=== PATIENT | male | born 1965 | race Hispanic/Latino ===

== ENCOUNTER 2016-11-12 14:15 | Observation (INO) | payer OTHER, MEDICARE ==
[2016-11-12 14:25] VITALS: BMI 34.0
[2016-11-12] MEDS ORDERED: Lidocaine 5% Patch TD ONE (15:33)
--- NOTE | 2016-11-12 15:41 | C.PDOC ---
History Of Present Illness 51-year-old male, PMHx includes Hypertension, presents to the emergency department with complaints of persistent lower-back and abdominal pain x1 week. Pt seen at [facility] for same complaint this past week. Patient states he only had a LS XR and CXR done. Initial onset right right-lower back, that is now radiating to B/L lower quadrants intermittently, and described as a cramping sensation. left back pain worsens w/ exertion and certain positions. Patient states he initially thought he was constipated, and notes no improvement with OTC constipation meds. PERSIST LB, ABD PAIN X 1 WEEK. SEEN @ [facility] FOR SAME 11/09, PS ONLY CXR AND LS XRAY DONE. dc w flexeril and naproxn BUT DIDNT FILL BC "TOO PAINFUL TO MOVE" INITIAL ONSET R LB, NOW RADIATION INTERMIT B/L LQ CRAMPING BUT PERSIST B/L LBP. LBP WORSE W EXTENSION, CERTAIN POSITIONS. PS INITIALLY THOUGHT WAS CONSTIPATION NO CHANGE W OTC CONSTIPATION RX. +BM. PSH [facility] HERNIA REPAIR. NO FEVER, NV, HEMATURIA. PRIOR HO SCIATICA R LEG BUT CURRENT BACK PAIN DIFF THAN PRIOR. HO LUE RSD. PS WAS ON CHRONIC PAIN MEDS BUT NO LONGER USES FOR "MANY YEARS". EXAM MILD DIST NONTOXIC BACK NONTEND, LIMITED EXTENSION DUE TO PAIN ABD L>R LQ TEND MILD SOFT NO R/G NEURO INTACT REMAINDER NEG Time Seen by Provider: 11/12/16 14:43 Chief Complaint (Nursing): Abdominal Pain History Per: Patient History/Exam Limitations: no limitations Past Medical History Reviewed: Historical Data, Nursing Documentation, Vital Signs Vital Signs: Last Vital Signs Temp 97.7 F 11/12/16 17:32 Pulse 60 11/12/16 17:32 Resp 16 11/12/16 17:32 BP 127/66 11/12/16 17:32 Pulse Ox 96 11/12/16 17:32 - Medical History PMH: HTN Family History: States: Unknown Family Hx - Social History Hx Alcohol Use: No Hx Substance Use: Yes - Immunization History Hx Tetanus Toxoid Vaccination: Yes Hx Influenza Vaccination: Yes Hx Pneumococcal Vaccination: No Review Of Systems Except As Marked, All Systems Reviewed And Found Negative. Constitutional: Negative for: Fever Cardiovascular: Negative for: Chest Pain Respiratory: Negative for: Cough Gastrointestinal: Positive for: Abdominal Pain Musculoskeletal: Positive for: Back Pain. Negative for: Neck Pain Skin: Negative for: Rash Physical Exam - Physical Exam Appears: Non-toxic, No Acute Distress Skin: Warm, Dry, No Rash Eye(s): bilateral: Normal Inspection, PERRL Nose: Normal Oral Mucosa: Moist Neck: Normal ROM Cardiovascular: Rhythm Regular Respiratory: Normal Breath Sounds, No Accessory Muscle Use Gastrointestinal/Abdominal: Tenderness, No Guarding, No Rebound, Other (L>R LQ TEND MILD SOFT) Back: Other (NONTEND, LIMITED EXTENSION DUE TO PAIN) Extremity: Normal ROM Neurological/Psych: Oriented x3, Normal Speech ED Course And Treatment - Laboratory Results Result Diagrams: 11/12/16 16:09 11/12/16 16:09 O2 Sat by Pulse Oximetry: 100 ED OBSERVATION Discharge: Yes Date of observation admission: 11/12/16 Time of observation admission: 15:00 - Observation admission statement Patient is being placed in observation because:: ABD PAIN, LBP - Goals of Observation Goals of observation are:: NEG ACS, NEG OCCULT FINDINGS, SX IMPROVE - Progress Note Progress Note: 11/12/16 17:[address], LABS, XRAY NEG. ADVISED FU PMD 11/12/16 17:55 PT OFFERED NONNARCOTIC OPTION DUE TO PRIOR NARCOTIC DEPENDENCE. STATES REQUESTING "JUST A COUPLE DAYS SUPPLY" UNTIL SEES PMD Disposition Counseled Patient/Family Regarding: Studies Performed, Diagnosis, Need For Followup, Rx Given - Disposition Disposition: HOME/ ROUTINE Disposition Time: 17:55 Condition: IMPROVED - Clinical Impression Clinical Impression: Abdominal pain, Back pain - Scribe Statement The provider has reviewed the documentation as recorded by the Rodriguez Lala All medical record entries made by the Rodriguez were at my direction and personally dictated by me. I have reviewed the chart and agree that the record accurately reflects my personal performance of the history, physical exam, medical decision making, and the department course for this patient. I have also personally directed, reviewed, and agree with the discharge instructions and disposition.
[2016-11-12] MEDS ORDERED: Iohexol 240 (50 ml) PO STA (15:42)
[2016-11-12] MEDS ORDERED: Sodium Chloride 0.9% 1,000 ML IV ONE (15:42)
[2016-11-12] MEDS ORDERED: Lidocaine 5% Patch TD STA (15:43)
[2016-11-12] MEDS ORDERED: Iohexol 240 (50 ml) ONE (15:50)
[2016-11-12] MEDS ORDERED: Sodium Chloride 0.9% 1,000 ML ONE (15:51)
[2016-11-12 16:08] LABS: VENOUS BLOOD GAS BASE EXCESS -0.2 mmol/L (0.0-2.0); VENOUS BLOOD GAS PCO2 41 mmHg (40-60); VENOUS BLOOD PH 7.39 (7.32-7.43)
[2016-11-12 16:13] LABS: BASO % 0.2 % (0.0-2.0); EOS # 0.1 K/uL (0.0-0.7); HEMATOCRIT 45.5 % (35.0-51.0); LYMPH # 2.1 K/uL (1.0-4.3); LYMPH % 28.3 % (20.0-40.0); MEAN CELL VOLUME 90.5 fL (80.0-94.0); MEAN CORPUSCULAR HEMOGLOBIN 30.6 pg (27.0-31.0); MEAN CORPUSCULAR HGB CONC 33.9 g/dL (33.0-37.0); MEAN PLATELET VOLUME 8.8 fL (7.2-11.7); MONO # 0.4 K/uL (0.0-0.8); MONO % 5.9 % (0.0-10.0); RED CELL DISTRIBUTION WIDTH 13.9 % (11.5-14.5); WHITE BLOOD COUNT 7.6 K/uL (4.8-10.8)
[2016-11-12 16:21] LABS: CHLORIDE 103 mmol/L (98-107); POTASSIUM 4.5 mmol/L (3.6-5.2); SODIUM 139 mmol/L (132-148)
[2016-11-12 16:23] LABS: ALKALINE PHOSPHATASE 74 U/L (38-126); ALT/SGPT 117 U/L (21-72); AST/SGOT 64 U/L (17-59); BILIRUBIN,TOTAL 0.7 mg/dL (0.2-1.3); BLOOD UREA NITROGEN 18 mg/dL (9-20); CARBON DIOXIDE 25 mmol/L (22-30); GFR AFRICAN-AMERICAN > 60; GLUCOSE,RANDOM 127 mg/dL (75-110); TOTAL PROTEIN 8.4 g/dL (6.3-8.3)
[2016-11-12 16:24] LABS: CALCIUM 8.9 mg/dl (8.6-10.4)
--- NOTE | 2016-11-12 16:41 | RAD ---
PROCEDURE: Radiographs of the Lumbar Spine. HISTORY: TRAUMA COMPARISON: No prior. FINDINGS: BONES: Mildly exaggerated lumbar lordosis. No compressive deformity. DISC SPACES: Decrease in intervertebral joint space at L5-S1 and T12-L1. OTHER FINDINGS: Vascular calcifications. Facet arthropathy. IMPRESSION: No compressive deformity. If symptoms of pain persist, MRI of the lumbar spine can be obtained. Please note that the lower thoracic spine was suboptimally evaluated.
[2016-11-12] MEDS ORDERED: Iodixanol 320 MG/ML 100 ML BOTTLE IV ONE (16:46)
[2016-11-12 16:48] LABS: RBC URINE 3 /hpf (0-3); URINE BACTERIA OCC (<OCC); URINE BILIRUBIN NEGATIVE (NEGATIVE); URINE BLOOD NEGATIVE (NEGATIVE); URINE COLOR Amber (YELLOW); URINE GLUCOSE (UA) NORMAL (Normal); URINE KETONE NEGATIVE (NEGATIVE); URINE LEUKOCYTE ESTERASE NEG Leu/uL (Negative); URINE PROTEIN NEGATIVE (NEGATIVE); URINE UROBILINOGEN NORMAL mg/dL (0.2-1.0); WBC URINE 1 /hpf (0-5)
[2016-11-12 17:33] VITALS: BP 127/66; PULSE 60; RESP 16; TEMP 97.7
--- NOTE | 2016-11-12 17:43 | CT ---
PROCEDURE: CT Abdomen and Pelvis with contrast HISTORY: Lower abdominal and back pain. COMPARISON: None. TECHNIQUE: Contrast dose: 100 cc Visipaque 320. Radiation dose: Total exam DLP = 1321.25 mGy-cm. This CT exam was performed using one or more of the following dose reduction techniques: Automated exposure control, adjustment of the mA and/or kV according to patient size, and/or use of iterative reconstruction technique. FINDINGS: LOWER THORAX: Unremarkable. LIVER: Hepatic steatosis. No focal masses. No intrahepatic bile duct dilatation or perihepatic ascites. GALLBLADDER AND BILE DUCTS: Unremarkable. PANCREAS: Unremarkable. No gross lesion or ductal dilatation. SPLEEN: Unremarkable. ADRENALS: Unremarkable. No mass. KIDNEYS AND URETERS: Unremarkable. No hydronephrosis. No solid mass. VASCULATURE: Unremarkable. No aortic aneurysm. BOWEL: Diverticulosis without an acute inflammatory component or other associated pathologic process. APPENDIX: Normal appendix. PERITONEUM: Unremarkable. No free fluid. No free air. LYMPH NODES: Unremarkable. No enlarged lymph nodes. BLADDER: Unremarkable. REPRODUCTIVE: Unremarkable. BONES: No acute fracture. OTHER FINDINGS: None. IMPRESSION: No significant or acute findings to account for/ related to the clinical presentation.
[2016-11-12 17:55] VITALS: O2SAT 100
[2016-11-12] MEDS ORDERED: Oxycodone/Acetaminophen 5/325 mg Tab PO STA (17:57)
[2016-11-12] MEDS ORDERED: Oxycodone/Acetaminophen 5/325 mg Tab ONE (18:29)
== END 2016-11-12 17:57 | disposition home or self-care (01) ==
LOC: C.ER 14:15 → C.9OBSV 15:00
PROVIDERS: ADMIT Emergency Medicine; ATTEND Emergency Medicine
DX: R10.9 Unspecified abdominal pain (principal); I10 Essential (primary) hypertension; M54.9 Dorsalgia, unspecified
CPT/HCPCS: 36415; 72100; 74177; 80053; 81001; 82803; 83690; 85025; 87086; 96361; 96374; 99285; G0378; Q9967